=== PATIENT | male | born 1980 | race Caucasian/White ===

== ENCOUNTER 2017-05-18 10:42 | Emergency (ER) | payer SELFPAY ==
[2017-05-18] MEDS ORDERED: NORMAL SALINE 1000 ML 1,000 ML IV PRN (11:15)
--- NOTE | 2017-05-18 11:21 | ER Document Report ---
ED Medical Screen (RME) - General Chief Complaint: Abdominal Pain Stated Complaint: STOMACH PAIN Time Seen by Provider: 05/18/17 11:15 Notes: Patient has 1 day of right lower quadrant abdominal pain. He has had diarrhea and nausea. He has had decreased appetite. He denies any previous abdominal surgeries. No problems with urination. No testicular pain. Patient denies any fevers. The pain is been constant. TRAVEL OUTSIDE OF THE [place] IN LAST 30 DAYS: No - Related Data Allergies/Adverse Reactions: ketorolac tromethamine [From Toradol] Allergy (Intermediate, Verified 05/18/17 10:59) Hives, Itchy Past Medical History - Social History Chew tobacco use (# tins/day): No Frequency of alcohol use: Rare Drug Abuse: None - Past Medical History Cardiac Medical History: Reports: Hx Heart Murmur Pulmonary Medical History: Reports: Hx Pneumonia Renal/ Medical History: Reports: Hx Kidney Stones Psychiatric Medical History: Reports: Hx Anxiety, Hx Depression Past Surgical History: Reports: Hx Oral Surgery - dental surgery - Immunizations Hx Diphtheria, Pertussis, Tetanus Vaccination: Yes Physical Exam - Vital signs Vitals: Temp Pulse Resp BP Pulse Ox 97.9 F 80 16 126/82 H 99 05/18/17 10:55 05/18/17 10:55 05/18/17 10:55 05/18/17 10:55 05/18/17 10:55 Course - Vital Signs Vital signs: Temp Pulse Resp BP Pulse Ox 97.9 F 80 16 126/82 H 99 05/18/17 10:55 05/18/17 10:55 05/18/17 10:55 05/18/17 10:55 05/18/17 10:55
[2017-05-18 11:39] LABS: ABSOLUTE BASOPHILS # (AUTO) 0.1 10^3/uL (0.0-0.2); ABSOLUTE EOSINOPHILS # (AUTO) 0.2 10^3/uL (0.0-0.6); ABSOLUTE LYMPHOCYTES (AUTO) 2.1 10^3/uL (0.5-4.7); ABSOLUTE MONOCYTES (AUTO) 0.6 10^3/uL (0.1-1.4); BASOPHILS % (AUTO) 0.6 % (0-2); EOSINOPHILS % (AUTO) 1.4 % (0-6); HEMATOCRIT 49.8 % (37.9-51.0); HEMOGLOBIN 15.9 g/dL (13.5-17.0); HGB HCT DIFFERENCE -2.1; LYMPHOCYTES % (AUTO) 19.4 % (13-45); MEAN CORPUSCULAR HEMOGLOBIN 25.5 pg (27.0-33.4); MEAN CORPUSCULAR VOLUME 80 fl (80-97); MONOCYTES % (AUTO) 5.9 % (3-13); RED BLOOD COUNT 6.25 10^6/uL (4.35-5.55); RED CELL DISTRIBUTION WIDTH 14.6 % (11.5-14.0); SEGMENTED NEUTROPHILS % (AUTO) 72.7 % (42-78)
[2017-05-18 11:44] LABS: APPEARANCE,URINE SLIGHTLY-CLOUDY; BILIRUBIN,URINE NEGATIVE (NEGATIVE); GLUCOSE, URINE NEGATIVE (NEGATIVE); KETONES,URINE NEGATIVE (NEGATIVE); LEUKOCYTE ESTERASE,URINE SMALL (NEGATIVE); NITRITE,URINE NEGATIVE (NEGATIVE); PROTEIN,URINE NEGATIVE (NEGATIVE); URINE SPECIFIC GRAVITY 1.009; UROBILINOGEN,URINE NEGATIVE mg/dL (<2.0)
[2017-05-18 12:03] LABS: ALANINE AMINOTRANSFERASE 27 U/L (21-72); ALKALINE PHOSPHATASE 41 U/L (38-126); ANION GAP 8 (5-19); ASPARTATE AMINO TRANSFERASE 19 U/L (17-59); BILIRUBIN,DIRECT 0.4 mg/dL (0.0-0.4); BILIRUBIN,TOTAL 0.5 mg/dL (0.2-1.3); BLOOD UREA NITROGEN 13 mg/dL (7-20); CALCIUM 9.5 mg/dL (8.4-10.2); CARBON DIOXIDE 26 mmol/L (22-30); CHLORIDE 105 mmol/L (98-107); CREATININE RESULT 0.93 mg/dL (0.52-1.25); GLUCOSE 110 mg/dL (75-110); POTASSIUM 4.5 mmol/L (3.6-5.0); SODIUM 138.7 mmol/L (137-145); TOTAL PROTEIN 6.3 g/dL (6.3-8.2)
--- NOTE | 2017-05-18 12:17 | RADIOLOGY REPORT (SQ) ---
EXAM DESCRIPTION: CT ABD/PELVIS WITH IV ONLY COMPLETED DATE/TIME: 05/18/2017 11:48 am REASON FOR STUDY: rlq pain COMPARISON: CT abdomen and pelvis 01/01/2007, 10/14/2007, 08/12/2011, 06/08/2012, 02/18/2013, 05/20/2014 TECHNIQUE: CT scan of the abdomen and pelvis performed using helical scanning technique with dynamic intravenous contrast injection. No oral contrast. Images reviewed with lung, soft tissue, and bone windows. Reconstructed coronal and sagittal MPR imag es reviewed. Delayed images for evaluation of the urinary system also acquired. All images stored on PACS. All CT scanners at this facility use dose modulation, iterative reconstruction, and/or weight based d osing when appropriate to reduce radiation dose to as low as reasonably achievable (ALARA). [facility]: Dose Right [facility]: CareDose [facility]: Dose Right [facility]: Teradose 4D [facility]: Bundlr CONTRAST TYPE AND DOSE: contrast/concentration: Isovue 370.00 mg/ml; Total Contrast Delivered: 65.0 ml; Total Saline Delivered: 65.0 ml RENAL FUNCTION: None required. The patient is less than 50 years old. RADIATION DOSE: Up-to-date CT equipment and radiation dose reduction techniques were employed. CTDIv ol: 4.8 - 5.1 mGy. DLP: 491 mGy-cm.. LIMITATIONS: None. FINDINGS: LOWER CHEST: No significant findings. No nodules or infiltrates. LIVER: Normal size. No masses. No dilated ducts. SPLEEN: Normal size. No focal lesions. PANCREAS: No masses. No significant calcifications. No adjacent inflammation or peripancreatic fluid collections. Pancreatic duct not dilated. GALLBLADDER: No identified stones by CT criteria. No inflammatory changes to suggest cholecystitis. ADRENAL GLANDS: No significant masses or asymmetry. RIGHT KIDNEY AND URETER: No solid masses. 0.8 cm cyst right mid-pole kidney. No significant calcifi cations. No hydronephrosis or hydroureter. LEFT KIDNEY AND URETER: No solid masses. 1.1 cm cyst left mid pole kidney. No significant calcifica tions. No hydronephrosis or hydroureter. AORTA AND VESSELS: No aneurysm. No dissection. Renal arteries, SMA, celiac without stenosis. RETROPERITONEUM: No retroperitoneal adenopathy, hemorrhage or masses. BOWEL AND PERITONEAL CAVITY: No masses or inflammatory changes. No free fluid or peritoneal masses. APPENDIX: Normal. PELVIS: No mass. No free fluid. Normal bladder. ABDOMINAL WALL: No masses. No hernias. BONES: No significant or acute findings. OTHER: No other significant finding. IMPRESSION: NO SIGNIFICANT OR ACUTE FINDING IN THE ABDOMEN OR PELVIS ON CT SCAN WITH IV CONTRAST. TECHNICAL DOCUMENTATION: JOB ID: [id number] Quality ID # [id number]: Final reports with documentation of one or more dose reduction techniques (e.g., Au tomated exposure control, adjustment of the mA and/or kV according to patient size, use of iterative reconstruction technique) 2010 [employer]- All Rights Reserved
[2017-05-18] MEDS ORDERED: HYDROCODONE/ACETAMINOPHEN 5-325 MG TABLET PO ONE (13:49)
[2017-05-18] MEDS ORDERED: ONDANSETRON HCL INJ/PF 4 MG/2 ML SDV IV ONE (13:49)
--- NOTE | 2017-05-18 15:12 | ER Document Report ---
ED GI/ - General Chief Complaint: Abdominal Pain Stated Complaint: STOMACH PAIN Time Seen by Provider: 05/18/17 11:15 Mode of Arrival: Ambulatory Information source: Patient Notes: Patient is a 36-year-old male who presents to the ER today for nausea, vomiting , abdominal cramping all over since this morning. Patient admits to 4-5 episodes of vomiting. He denies any diarrhea stating that he had a normal bowel movement this morning. He denies any sick contacts, fevers, chills. TRAVEL OUTSIDE OF THE [place] IN LAST 30 DAYS: No - Related Data Allergies/Adverse Reactions: ketorolac tromethamine [From Toradol] Allergy (Intermediate, Verified 05/18/17 10:59) Hives, Itchy Past Medical History - General Information source: Patient - Social History Smoking Status: Current Every Day Smoker Chew tobacco use (# tins/day): No Frequency of alcohol use: Rare Drug Abuse: None Family History: Reviewed & Not Pertinent, Hypertension - Past Medical History Cardiac Medical History: Reports: Hx Heart Murmur Pulmonary Medical History: Reports: Hx Pneumonia Renal/ Medical History: Reports: Hx Kidney Stones Psychiatric Medical History: Reports: Hx Anxiety, Hx Depression Past Surgical History: Reports: Hx Oral Surgery - dental surgery - Immunizations Hx Diphtheria, Pertussis, Tetanus Vaccination: Yes Review of Systems - Review of Systems Constitutional: No symptoms reported EENT: No symptoms reported Cardiovascular: No symptoms reported Respiratory: No symptoms reported Gastrointestinal: See HPI Genitourinary: No symptoms reported Male Genitourinary: No symptoms reported Musculoskeletal: No symptoms reported Skin: No symptoms reported Hematologic/Lymphatic: No symptoms reported Neurological/Psychological: No symptoms reported Physical Exam - Vital signs Vitals: Temp Pulse Resp BP Pulse Ox 97.9 F 80 16 126/82 H 99 05/18/17 10:55 05/18/17 10:55 05/18/17 10:55 05/18/17 10:55 05/18/17 10:55 - Notes Notes: PHYSICAL EXAMINATION: GENERAL: Mildly ill-appearing, but earing and in no acute distress. HEAD: Atraumatic, normocephalic. EYES: Pupils equal round and reactive to light, extraocular movements intact, sclera anicteric, conjunctiva are normal. NECK: Normal range of motion, supple without lymphadenopathy LUNGS: CTAB and equal. No wheezes rales or rhonchi. HEART: Regular rate and rhythm without murmurs ABDOMEN: Soft, mild diffuse tenderness. No guarding, no rebound BACK: no vertebral tenderness, normal ROM GI/: no CVA tenderness EXTREMITIES: Normal range of motion, no pitting edema. No cyanosis. NEUROLOGICAL: Cranial nerves grossly intact. Normal sensory/motor exams. PSYCH: Normal mood, normal affect. SKIN: Warm, Dry, normal turgor, no rashes or lesions noted Course - Re-evaluation Re-evalutation: 05/18/17 16:05 Patient given fluids, feels better after IV nausea medication. Lab work unremarkable today. Patient was sent home with nausea medication. - Vital Signs Vital signs: Temp Pulse Resp BP Pulse Ox 98.3 F 59 L 16 143/72 H 98 05/18/17 15:27 05/18/17 15:27 05/18/17 15:27 05/18/17 15:27 05/18/17 15:27 - Laboratory Result Diagrams: 05/18/17 11:23 05/18/17 11:23 Laboratory results interpreted by me: 05/18/17 05/18/17 11:23 11:23 WBC 11.0 H RBC 6.25 H MCH 25.5 L RDW 14.6 H Urine Blood MODERATE H Ur Leukocyte Esterase SMALL H Discharge - Discharge Clinical Impression: Abdominal pain Qualifiers: Abdominal location: generalized Qualified Code(s): R10.84 - Generalized abdominal pain Nausea & vomiting Qualifiers: Vomiting type: unspecified Vomiting Intractability: non-intractable Qualified Code(s): R11.2 - Nausea with vomiting, unspecified Condition: Stable Disposition: HOME, SELF-CARE Instructions: Intravenous (IV) Fluids ([facility]), Viral Syndrome ([facility]), Vomiting ( [facility]) Additional Instructions: Return immediately for any new or worsening symptoms. Follow up with primary care provider, call tomorrow to make followup appointment. Prescriptions: Ondansetron [Zofran Odt 4 mg Tablet] 1 - 2 tab PO Q4H PRN #30 tab.rapdis PRN Reason: For Nausea/Vomiting Forms: Return to Work
[2017-05-18 15:27] VITALS: BP 143/72
== END 2017-05-18 15:28 | disposition home or self-care (01) ==
LOC: ER 10:42
DX: R10.84 Generalized abdominal pain (principal); R11.2 Nausea with vomiting, unspecified; F17.200 Nicotine dependence, unspecified, uncomplicated; Z88.8 Allergy status to other drugs, medicaments and biological substances; Z87.442 Personal history of urinary calculi
CPT/HCPCS: 99284; 96361; 96374; 36415; 85025; 80053; 81001; 74177; J2405; J7030

== ENCOUNTER 2017-09-04 13:59 | Emergency (ER) | payer SELFPAY ==
[2017-09-04] MEDS ORDERED: NORMAL SALINE 1000 ML 1,000 ML IV ONE (14:46)
--- NOTE | 2017-09-04 14:47 | ER Document Report ---
ED Medical Screen (RME) - General Chief Complaint: Nausea/Vomiting/Diarrhea Stated Complaint: VOMITING Time Seen by Provider: 09/04/17 14:44 TRAVEL OUTSIDE OF THE [place] IN LAST 30 DAYS: No - HPI Patient complains to provider of: N/V/D Onset: This morning - pt with c/o multiple episodes of vomiting and diarrhea since early this am - Related Data Allergies/Adverse Reactions: ketorolac tromethamine [From Toradol] Allergy (Intermediate, Verified 09/04/17 14:00) Hives, Itchy Past Medical History - Social History Chew tobacco use (# tins/day): No Frequency of alcohol use: Rare Drug Abuse: None - Past Medical History Cardiac Medical History: Reports: Hx Heart Murmur Pulmonary Medical History: Reports: Hx Pneumonia Renal/ Medical History: Reports: Hx Kidney Stones. Denies: Hx Peritoneal Dialysis Psychiatric Medical History: Reports: Hx Anxiety, Hx Depression Past Surgical History: Reports: Hx Oral Surgery - dental surgery - Immunizations Hx Diphtheria, Pertussis, Tetanus Vaccination: Yes Physical Exam - Vital signs Vitals: Temp Pulse Resp BP Pulse Ox 98.7 F 80 16 137/80 H 100 09/04/17 14:08 09/04/17 14:08 09/04/17 14:08 09/04/17 14:08 09/04/17 14:08 Course - Vital Signs Vital signs: Temp Pulse Resp BP Pulse Ox 98.7 F 80 16 137/80 H 100 09/04/17 14:08 09/04/17 14:08 09/04/17 14:08 09/04/17 14:08 09/04/17 14:08
[2017-09-04 15:14] LABS: ABSOLUTE BASOPHILS # (AUTO) 0.1 10^3/uL (0.0-0.2); ABSOLUTE EOSINOPHILS # (AUTO) 0.3 10^3/uL (0.0-0.6); ABSOLUTE LYMPHOCYTES (AUTO) 2.7 10^3/uL (0.5-4.7); ABSOLUTE MONOCYTES (AUTO) 0.8 10^3/uL (0.1-1.4); ABSOLUTE NEUT (AUTO) 6.5 10^3/uL (1.7-8.2); BASOPHILS % (AUTO) 1.4 % (0-2); EOSINOPHILS % (AUTO) 2.5 % (0-6); HEMATOCRIT 48.9 % (37.9-51.0); HEMOGLOBIN 16.2 g/dL (13.5-17.0); LYMPHOCYTES % (AUTO) 25.8 % (13-45); MEAN CORPUSCULAR HEMOGLOBIN 25.3 pg (27.0-33.4); MEAN CORPUSCULAR HGB CONC 33.1 g/dL (32.0-36.0); MEAN CORPUSCULAR VOLUME 77 fl (80-97); MONOCYTES % (AUTO) 7.8 % (3-13); PLATELET COUNT 375 10^3/uL (150-450); RED BLOOD COUNT 6.39 10^6/uL (4.35-5.55); RED CELL DISTRIBUTION WIDTH 15.3 % (11.5-14.0); SEGMENTED NEUTROPHILS % (AUTO) 62.5 % (42-78); TOTAL CELLS COUNTED % (AUTO) 100 %; WHITE BLOOD COUNT 10.3 10^3/uL (4.0-10.5)
[2017-09-04 15:23] LABS: APPEARANCE,URINE CLEAR; BILIRUBIN,URINE NEGATIVE (NEGATIVE); COLOR,URINE YELLOW; GLUCOSE, URINE NEGATIVE (NEGATIVE); KETONES,URINE NEGATIVE (NEGATIVE); LEUKOCYTE ESTERASE,URINE NEGATIVE (NEGATIVE); NITRITE,URINE NEGATIVE (NEGATIVE); PROTEIN,URINE NEGATIVE (NEGATIVE); URINE SPECIFIC GRAVITY 1.015; UROBILINOGEN,URINE NEGATIVE mg/dL (<2.0)
[2017-09-04 15:33] LABS: ALANINE AMINOTRANSFERASE 30 U/L (21-72); ALBUMIN 4.3 g/dL (3.5-5.0); ALKALINE PHOSPHATASE 46 U/L (38-126); ANION GAP 11 (5-19); ASPARTATE AMINO TRANSFERASE 19 U/L (17-59); BILIRUBIN,DIRECT 0.4 mg/dL (0.0-0.4); BILIRUBIN,TOTAL 0.5 mg/dL (0.2-1.3); BLOOD UREA NITROGEN 12 mg/dL (7-20); CALCIUM 9.8 mg/dL (8.4-10.2); CARBON DIOXIDE 29 mmol/L (22-30); CHLORIDE 106 mmol/L (98-107); GLUCOSE 96 mg/dL (75-110); LIPASE 224.9 U/L (23-300); POTASSIUM 4.4 mmol/L (3.6-5.0); TOTAL PROTEIN 6.8 g/dL (6.3-8.2)
--- NOTE | 2017-09-04 15:46 | RADIOLOGY REPORT (SQ) ---
EXAM DESCRIPTION: ACUTE ABDOMEN SERIES COMPLETED DATE/TIME: 09/04/2017 3:33 pm REASON FOR STUDY: abd pain COMPARISON: None. NUMBER OF VIEWS: Three views. TECHNIQUE: Frontal chest, supine abdomen and upright/decubitus abdomen radiographic images acquired. LIMITATIONS: None. FINDINGS: CHEST: Lungs clear of infiltrates. FREE AIR: None. No abnormal gas collections. BOWEL GAS PATTERN: Nonobstructive pattern. No dilated loops or air fluid levels. CALCIFICATIONS: No suspicious calcifications. HARDWARE: None in the abdomen. SOFT TISSUES: No gross mass or suggestion of organomegaly. BONES: No acute fracture. No worrisome bone lesions. OTHER: No other significant finding. IMPRESSION: NO RADIOGRAPHIC EVIDENCE FOR ACUTE ABDOMINAL DISEASE. TECHNICAL DOCUMENTATION: JOB ID: [id number] [email or web address]- All Rights Reserved
[2017-09-04 17:30] VITALS: BP 132/94
== END 2017-09-04 17:15 | disposition home or self-care (01) ==
LOC: ER 13:59
DX: K52.9 Noninfective gastroenteritis and colitis, unspecified (principal); R11.2 Nausea with vomiting, unspecified
CPT/HCPCS: 99284; 96360; 36415; 83690; 85025; 80053; 81001; 74022; J7030

== ENCOUNTER 2018-01-12 09:45 | Emergency (ER) | payer SELFPAY ==
--- NOTE | 2018-01-12 10:13 | ER Document Report ---
ED Medical Screen (RME) - General Chief Complaint: Nausea/Vomiting Stated Complaint: VOMITING Time Seen by Provider: 01/12/18 10:01 Mode of Arrival: Ambulatory Information source: Patient Notes: Patient is a 37-year-old male who presents to the emergency department today with complaints of vomiting with associated abdominal cramping which began yesterday at noon. Patient states he has had these symptoms in the past and his pain today is similar to his previous gastritis flares. Patient denies any sick contacts, bad food, diarrhea, or black/red coloring in his vomit. TRAVEL OUTSIDE OF THE [place] IN LAST 30 DAYS: No - Related Data Allergies/Adverse Reactions: ketorolac tromethamine [From Toradol] Allergy (Intermediate, Verified 09/04/17 14:00) Hives, Itchy Past Medical History - General Information source: Patient - Social History Chew tobacco use (# tins/day): No Frequency of alcohol use: Rare Drug Abuse: None Lives with: Family Family history: Reviewed & Not Pertinent - Past Medical History Cardiac Medical History: Reports: Hx Heart Murmur Pulmonary Medical History: Reports: Hx Pneumonia Renal/ Medical History: Reports: Hx Kidney Stones Psychiatric Medical History: Reports: Hx Anxiety, Hx Depression Past Surgical History: Reports: Hx Oral Surgery - dental surgery - Immunizations Hx Diphtheria, Pertussis, Tetanus Vaccination: Yes Review of Systems - Review of Systems Constitutional: No symptoms reported EENT: No symptoms reported Cardiovascular: No symptoms reported Respiratory: No symptoms reported Gastrointestinal: See HPI, Abdominal pain, Vomiting. denies: Diarrhea Genitourinary: No symptoms reported Male Genitourinary: No symptoms reported Musculoskeletal: No symptoms reported Skin: No symptoms reported Hematologic/Lymphatic: No symptoms reported Neurological/Psychological: No symptoms reported -: Yes All other systems reviewed and negative Physical Exam - Vital signs Vitals: Temp Pulse Resp BP Pulse Ox 98.3 F 78 15 113/76 98 01/12/18 09:51 01/12/18 09:51 01/12/18 09:51 01/12/18 09:51 01/12/18 09:51 - Notes Notes: Physical Exam: General: Alert, appears well. HEENT: Normocephalic. Atraumatic. PERRLA. Extraocular movements intact. Oropharynx clear. Dry mucous membranes. Neck: Supple. Respiratory: No respiratory distress. Abdominal: Normal Inspection. No distension. Extremities: Moves all four extremities. Neurological: Normal cognition. AAOx4. Normal speech. Psychological: Normal affect. Normal Mood. Skin: Warm. Dry. Normal color. Course - Vital Signs Vital signs: Temp Pulse Resp BP Pulse Ox 98.3 F 78 15 113/76 98 01/12/18 09:51 01/12/18 09:51 01/12/18 09:51 01/12/18 09:51 01/12/18 09:51 - Laboratory Result Diagrams: 01/12/18 10:45 01/12/18 10:45 Scribe Documentation - Scribe Written by Scribe:: Flora Vasquez, 01/12/2018 1113 acting as scribe for :: Aurelio
[2018-01-12] MEDS ORDERED: NORMAL SALINE 1000 ML 1,000 ML IV ONE (10:15)
[2018-01-12] MEDS ORDERED: ONDANSETRON HCL INJ/PF 4 MG/2 ML SDV IV ONE (10:16)
--- NOTE | 2018-01-12 11:06 | ER Document Report ---
ED GI/ <ABELINOMARLEY - Last Filed: 01/12/18 11:13> - General Mode of Arrival: Ambulatory Information source: Patient TRAVEL OUTSIDE OF THE [place] IN LAST 30 DAYS: No - HPI Patient complains to provider of: Abdominal pain, Vomiting Onset: Yesterday Timing/Duration: Gradual Quality of pain: Cramping Pain Level: 1 Location: Other - Generalized abdomen Associated symptoms: Nausea, Vomiting. denies: Diarrhea, Dysuria, Loss of appetite Exacerbated by: Denies Relieved by: Denies Similar symptoms previously: No Recently seen / treated by doctor: No <VICKI SAMANIEGO - Last Filed: 01/12/18 18:51> - General Chief Complaint: Nausea/Vomiting Stated Complaint: VOMITING Time Seen by Provider: 01/12/18 10:01 Notes: Patient presents complaining of nausea and vomiting that started yesterday. Patient states that the vomiting has improved today. Patient denies any diarrhea. Patient reports that he did develop some abdominal cramping that started after the vomiting. Patient without any fever or urinary symptoms. Patient reports normal appetite. 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 Denies: Hx Peritoneal Dialysis Psychiatric Medical History: Reports: Hx Anxiety, Hx Depression Past Surgical History: Reports: Hx Oral Surgery - dental surgery - Immunizations Hx Diphtheria, Pertussis, Tetanus Vaccination: Yes <VICKI SAMANIEGO - Last Filed: 01/12/18 18:51> Review of Systems - Review of Systems Constitutional: No symptoms reported. denies: Fever EENT: No symptoms reported Cardiovascular: No symptoms reported Respiratory: No symptoms reported. denies: Cough Gastrointestinal: Abdominal pain, Nausea, Vomiting. denies: Diarrhea Genitourinary: No symptoms reported. denies: Dysuria, Flank pain Male Genitourinary: No symptoms reported Musculoskeletal: No symptoms reported Skin: No symptoms reported Hematologic/Lymphatic: No symptoms reported Neurological/Psychological: No symptoms reported. denies: Headaches <VICKI SAMANIEGO - Last Filed: 01/12/18 18:51> Physical Exam - General General appearance: Appears well, Alert In distress: None - HEENT Head: Normocephalic, Atraumatic Eyes: Normal Conjunctiva: Normal Ears: Normal External canal: Normal Nasal: Normal Mouth/Lips: Normal Mucous membranes: Normal. No: Dry Pharynx: Normal. No: Erythema Neck: Normal, Supple. No: Lymphadenopathy - Respiratory Respiratory status: No respiratory distress Chest status: Nontender Breath sounds: Normal. No: Rales, Rhonchi, Stridor, Wheezing Chest palpation: Normal - Cardiovascular Rhythm: Regular Heart sounds: S1 appreciated, S2 appreciated Murmur: No - Abdominal Inspection: Normal Distension: No distension Bowel sounds: Normal Tenderness: Tender - Generalized abdominal tenderness Organomegaly: No organomegaly - Back Back: Normal, Nontender. No: CVA tenderness - Extremities General upper extremity: Normal inspection, Nontender, Normal ROM General lower extremity: Normal inspection, Nontender, Normal ROM - Neurological Neuro grossly intact: Yes Cognition: Normal [place] Coma Scale Eye Opening: Spontaneous Daniel Coma Scale Verbal: Oriented [place] Coma Scale Motor: Obeys Commands Daniel Coma Scale Total: 15 - Psychological Associated symptoms: Normal affect, Normal mood - Skin Skin Temperature: Warm Skin Moisture: Dry Skin Color: Normal <ADENVICKI Ortega - Last Filed: 01/12/18 18:51> - Vital signs Vitals: Temp Pulse Resp BP Pulse Ox 98.3 F 78 15 113/76 98 01/12/18 09:51 01/12/18 09:51 01/12/18 09:51 01/12/18 09:51 01/12/18 09:51 Course - Laboratory Result Diagrams: 01/12/18 10:45 01/12/18 10:45 <MARLEY ROCA - Last Filed: 01/12/18 11:13> - Laboratory Result Diagrams: 01/12/18 10:45 01/12/18 10:45 <ADENPEDROTENAJACEK - Last Filed: 01/12/18 18:51> - Re-evaluation Re-evalutation: 01/12/18 12:47 Patient's abdomen soft, nontender. Patient denies any nausea or vomiting at this time. Patient presents with abdominal pain without signs of peritonitis or other life-threatening or serious etiology. Patient appears stable for discharge and has been instructed to return immediately if the symptoms worsen in any way, or in 8-12 hours if not improved for reevaluation. The patient has been instructed to return if the symptoms worsen or change in any way. (VICKI SAMANIEGO) - Vital Signs Vital signs: Temp Pulse Resp BP Pulse Ox 98.1 F 68 16 137/89 H 100 01/12/18 12:55 01/12/18 12:55 01/12/18 12:55 01/12/18 12:55 01/12/18 12:55 - Laboratory Laboratory results interpreted by me: 01/12/18 01/12/18 10:45 10:45 RBC 6.57 H MCV 77 L MCH 25.2 L RDW 14.9 H Sodium 146.5 H 01/12/18 01/12/18 10:45 10:45 RBC 6.57 H MCV 77 L MCH 25.2 L RDW 14.9 H Sodium 146.5 H 01/12/18 12:47 Labs- Entire Visit 01/12/18 01/12/18 01/12/18 10:35 10:45 10:45 WBC 8.3 RBC 6.57 H Hgb 16.6 Hct 50.4 MCV 77 L MCH 25.2 L MCHC 32.9 RDW 14.9 H Plt Count 333 Seg Neutrophils % 63.9 Lymphocytes % 28.0 Monocytes % 5.7 Eosinophils % 1.2 Basophils % 1.2 Absolute Neutrophils 5.3 Absolute Lymphocytes 2.3 Absolute Monocytes 0.5 Absolute Eosinophils 0.1 Absolute Basophils 0.1 Sodium 146.5 H Potassium 4.1 Chloride 105 Carbon Dioxide 30 Anion Gap 12 BUN 13 Creatinine 0.82 Est GFR ( Amer) > 60 Est GFR (Non-Af Amer) > 60 Glucose 105 Calcium 9.8 Magnesium 2.1 Total Bilirubin 0.4 Direct Bilirubin 0.3 Neonat Total Bilirubin Not Reportable Neonat Direct Bilirubin Not Reportable Neonat Indirect Bili Not Reportable AST 21 ALT 24 Alkaline Phosphatase 57 Total Protein 6.8 Albumin 4.3 Lipase 69.8 Urine Color YELLOW Urine Appearance CLEAR Urine pH 7.0 Ur Specific Bowler 1.006 Urine Protein NEGATIVE Urine Glucose (UA) NEGATIVE Urine Ketones NEGATIVE Urine Blood NEGATIVE Urine Nitrite NEGATIVE Urine Bilirubin NEGATIVE Urine Urobilinogen NEGATIVE Ur Leukocyte Esterase NEGATIVE Urine WBC (Auto) 0 Urine RBC (Auto) 0 Urine Mucus (Auto) RARE Urine Ascorbic Acid NEGATIVE (VICKI SAMANIEGO) Discharge <MARLEY ROCA - Last Filed: 01/12/18 11:13> <VICKI SAMANIEGO - Last Filed: 01/12/18 18:51> - Discharge Clinical Impression: Resolved abdominal pain Nausea and vomiting Qualifiers: Vomiting type: unspecified Vomiting Intractability: non-intractable Qualified Code(s): R11.2 - Nausea with vomiting, unspecified Condition: Stable Disposition: HOME, SELF-CARE Instructions: Abdominal Pain ([facility]), Antinausea Medication ([facility]), Intravenous ( IV) Fluids ([facility]), Vomiting ([facility]) Additional Instructions: Return immediately for any new or worsening symptoms Followup with your primary care provider, call tomorrow to make a followup appointment Prescriptions: Promethazine HCl [Phenergan 25 mg Tablet] 25 mg PO Q6H PRN #10 tablet PRN Reason: Forms: Smoking Cessation Education, Return to Work Referrals: [facility] [Provider Group] - Follow up as needed [facility] [Provider Group] - Follow up as needed
[2018-01-12 11:13] LABS: ABSOLUTE BASOPHILS # (AUTO) 0.1 10^3/uL (0.0-0.2); ABSOLUTE EOSINOPHILS # (AUTO) 0.1 10^3/uL (0.0-0.6); ABSOLUTE LYMPHOCYTES (AUTO) 2.3 10^3/uL (0.5-4.7); ABSOLUTE MONOCYTES (AUTO) 0.5 10^3/uL (0.1-1.4); ABSOLUTE NEUT (AUTO) 5.3 10^3/uL (1.7-8.2); BASOPHILS % (AUTO) 1.2 % (0-2); EOSINOPHILS % (AUTO) 1.2 % (0-6); HEMATOCRIT 50.4 % (37.9-51.0); HEMOGLOBIN 16.6 g/dL (13.5-17.0); MEAN CORPUSCULAR HEMOGLOBIN 25.2 pg (27.0-33.4); MEAN CORPUSCULAR HGB CONC 32.9 g/dL (32.0-36.0); MEAN CORPUSCULAR VOLUME 77 fl (80-97); MONOCYTES % (AUTO) 5.7 % (3-13); PLATELET COUNT 333 10^3/uL (150-450); RED BLOOD COUNT 6.57 10^6/uL (4.35-5.55); RED CELL DISTRIBUTION WIDTH 14.9 % (11.5-14.0); SEGMENTED NEUTROPHILS % (AUTO) 63.9 % (42-78); TOTAL CELLS COUNTED % (AUTO) 100 %; WHITE BLOOD COUNT 8.3 10^3/uL (4.0-10.5)
[2018-01-12 11:21] LABS: APPEARANCE,URINE CLEAR; BILIRUBIN,URINE NEGATIVE (NEGATIVE); COLOR,URINE YELLOW; GLUCOSE, URINE NEGATIVE (NEGATIVE); KETONES,URINE NEGATIVE (NEGATIVE); LEUKOCYTE ESTERASE,URINE NEGATIVE (NEGATIVE); NITRITE,URINE NEGATIVE (NEGATIVE); PROTEIN,URINE NEGATIVE (NEGATIVE); URINE SPECIFIC GRAVITY 1.006; UROBILINOGEN,URINE NEGATIVE mg/dL (<2.0)
[2018-01-12 11:31] LABS: ALANINE AMINOTRANSFERASE 24 U/L (21-72); ALBUMIN 4.3 g/dL (3.5-5.0); ALKALINE PHOSPHATASE 57 U/L (38-126); ANION GAP 12 (5-19); ASPARTATE AMINO TRANSFERASE 21 U/L (17-59); BILIRUBIN,DIRECT 0.3 mg/dL (0.0-0.4); BILIRUBIN,TOTAL 0.4 mg/dL (0.2-1.3); BLOOD UREA NITROGEN 13 mg/dL (7-20); CALCIUM 9.8 mg/dL (8.4-10.2); CARBON DIOXIDE 30 mmol/L (22-30); CHLORIDE 105 mmol/L (98-107); GLUCOSE 105 mg/dL (75-110); LIPASE 69.8 U/L (23-300); POTASSIUM 4.1 mmol/L (3.6-5.0); SODIUM 146.5 mmol/L (137-145); TOTAL PROTEIN 6.8 g/dL (6.3-8.2)
[2018-01-12] MEDS ORDERED: MAG HYDROX/AL HYDROX/SIMETH SUSP 30 ML UDCUP PO ONE (11:35)
[2018-01-12] MEDS ORDERED: LIDOCAINE 2% VISCOUS SOLN 20 ML UDCUP PO ONE (11:35)
[2018-01-12 12:58] VITALS: BP 137/89
== END 2018-01-12 12:58 | disposition home or self-care (01) ==
LOC: ER 09:45
DX: R10.9 Unspecified abdominal pain (principal); R11.2 Nausea with vomiting, unspecified; F17.200 Nicotine dependence, unspecified, uncomplicated; Z87.442 Personal history of urinary calculi
CPT/HCPCS: 99283; 96361; 96374; 36415; 83690; 83735; 85025; 80053; 81001; J3490; J2405; J7030

== ENCOUNTER 2018-07-07 09:28 | Emergency (ER) | payer SELFPAY ==
[2018-07-07 11:18] LABS: APPEARANCE,URINE SLIGHTLY-CLOUDY; BILIRUBIN,URINE NEGATIVE (NEGATIVE); COLOR,URINE YELLOW; GLUCOSE, URINE NEGATIVE (NEGATIVE); KETONES,URINE NEGATIVE (NEGATIVE); LEUKOCYTE ESTERASE,URINE NEGATIVE (NEGATIVE); NITRITE,URINE NEGATIVE (NEGATIVE); PROTEIN,URINE 30 mg/dL (NEGATIVE); URINE SPECIFIC GRAVITY 1.025
[2018-07-07 11:18] LABS: ABSOLUTE BASOPHILS # (AUTO) 0.1 10^3/uL (0.0-0.2); ABSOLUTE EOSINOPHILS # (AUTO) 0.3 10^3/uL (0.0-0.6); ABSOLUTE LYMPHOCYTES (AUTO) 2.9 10^3/uL (0.5-4.7); ABSOLUTE MONOCYTES (AUTO) 0.8 10^3/uL (0.1-1.4); ABSOLUTE NEUT (AUTO) 4.3 10^3/uL (1.7-8.2); BASOPHILS % (AUTO) 1.1 % (0-2); EOSINOPHILS % (AUTO) 3.2 % (0-6); HEMATOCRIT 48.8 % (37.9-51.0); HEMOGLOBIN 16.4 g/dL (13.5-17.0); LYMPHOCYTES % (AUTO) 34.8 % (13-45); MEAN CORPUSCULAR HGB CONC 33.5 g/dL (32.0-36.0); MEAN CORPUSCULAR VOLUME 75 fl (80-97); MONOCYTES % (AUTO) 9.5 % (3-13); PLATELET COUNT 287 10^3/uL (150-450); RED BLOOD COUNT 6.53 10^6/uL (4.35-5.55); RED CELL DISTRIBUTION WIDTH 15.6 % (11.5-14.0); SEGMENTED NEUTROPHILS % (AUTO) 51.4 % (42-78); TOTAL CELLS COUNTED % (AUTO) 100 %; WHITE BLOOD COUNT 8.3 10^3/uL (4.0-10.5)
--- NOTE | 2018-07-07 11:26 | ER Document Report ---
ED GI/ - General Chief Complaint: Abdominal Pain Stated Complaint: VOMITING, DIARRHEA Time Seen by Provider: 07/07/18 11:26 Mode of Arrival: Ambulatory Information source: Patient Notes: 37-year-old male with vomiting and diarrhea since 3:00 yesterday. He vomited 8 or 9 this morning and has had some diarrhea. He has not seen any blood. No history of Crohn's or colitis or diverticulitis. No fever. He is complaining of some generalized abdominal pain. TRAVEL OUTSIDE OF THE [place] 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 Denies: Hx Peritoneal Dialysis Psychiatric Medical History: Reports: Hx Anxiety, Hx Depression Past Surgical History: Reports: Hx Oral Surgery - dental surgery - Immunizations Hx Diphtheria, Pertussis, Tetanus Vaccination: Yes Review of Systems - Review of Systems Constitutional: No symptoms reported EENT: No symptoms reported Cardiovascular: No symptoms reported Respiratory: No symptoms reported Gastrointestinal: See HPI Genitourinary: No symptoms reported Male Genitourinary: No symptoms reported Musculoskeletal: No symptoms reported Skin: No symptoms reported Hematologic/Lymphatic: No symptoms reported Neurological/Psychological: No symptoms reported Physical Exam - Vital signs Vitals: Temp Pulse Resp BP Pulse Ox 97.6 F 76 16 123/87 H 99 07/07/18 09:33 07/07/18 09:33 07/07/18 09:33 07/07/18 09:33 07/07/18 09:33 Interpretation: Normal - General General appearance: Appears well, Alert - HEENT Head: Normocephalic, Atraumatic Eyes: Normal Pupils: PERRL - Respiratory Respiratory status: No respiratory distress Chest status: Nontender Breath sounds: Normal Chest palpation: Normal - Cardiovascular Rhythm: Regular Heart sounds: Normal auscultation Murmur: No - Abdominal Inspection: Normal Distension: No distension Bowel sounds: Normal Tenderness: Nontender Organomegaly: No organomegaly - Back Back: Normal, Nontender. No: CVA tenderness - Extremities General upper extremity: Normal inspection, Nontender, Normal color, Normal ROM , Normal temperature General lower extremity: Normal inspection, Nontender, Normal color, Normal ROM , Normal temperature, Normal weight bearing. No: Wanda's sign - Neurological Neuro grossly intact: Yes Cognition: Normal Orientation: AAOx4 Osgood Coma Scale Eye Opening: Spontaneous Osgood Coma Scale Verbal: Oriented Osgood Coma Scale Motor: Obeys Commands Daniel Coma Scale Total: 15 Speech: Normal Motor strength normal: LUE, RUE, LLE, RLE Sensory: Normal - Psychological Associated symptoms: Normal affect, Normal mood - Skin Skin Temperature: Warm Skin Moisture: Dry Skin Color: Normal Skin irregularity: negative: Rash Course - Re-evaluation Re-evalutation: Labs are normal. Patient feels a lot better after the 2 L of fluid. He is able to keep fluids down orally. He feels like he can go home. - Vital Signs Vital signs: Temp Pulse Resp BP Pulse Ox 97.7 F 68 16 108/75 99 07/07/18 12:43 07/07/18 12:43 07/07/18 12:43 07/07/18 12:43 07/07/18 12:43 - Laboratory Result Diagrams: 07/07/18 09:47 07/07/18 10:30 Laboratory results interpreted by me: 07/07/18 07/07/18 09:47 10:20 RBC 6.53 H MCV 75 L MCH 25.0 L RDW 15.6 H Urine Protein 30 H Urine Urobilinogen 2.0 H Discharge - Discharge Clinical Impression: Vomiting Qualifiers: Vomiting type: unspecified Vomiting Intractability: non-intractable Nausea presence: with nausea Qualified Code(s): R11.2 - Nausea with vomiting, unspecified Diarrhea Qualifiers: Diarrhea type: unspecified type Qualified Code(s): R19.7 - Diarrhea, unspecified Condition: Good Disposition: HOME, SELF-CARE Instructions: Diarrhea, Nonspecific ([facility]), Intravenous (IV) Fluids ([facility]), Vomiting ([facility]) Additional Instructions: Drink plenty of fluids to continue hydrating Return to the emergency room if vomiting or diarrhea recur Prescriptions: Ondansetron HCl [Zofran 4 mg Tablet] 1 - 2 tab PO Q4H PRN #20 tablet PRN Reason: Forms: Return to Work
[2018-07-07] MEDS ORDERED: RINGERS SOLUTION,LACTATED 2,000 ML IV PRN (11:28)
[2018-07-07] MEDS ORDERED: ONDANSETRON 4 MG TAB.RAPDIS PO ONE (11:31)
[2018-07-07 11:42] LABS: ALANINE AMINOTRANSFERASE 23 U/L (21-72); ALBUMIN 4.4 g/dL (3.5-5.0); ALKALINE PHOSPHATASE 47 U/L (38-126); ANION GAP 10 (5-19); ASPARTATE AMINO TRANSFERASE 19 U/L (17-59); BILIRUBIN,DIRECT 0.4 mg/dL (0.0-0.4); BILIRUBIN,TOTAL 0.8 mg/dL (0.2-1.3); BLOOD UREA NITROGEN 18 mg/dL (7-20); CALCIUM 9.7 mg/dL (8.4-10.2); CARBON DIOXIDE 26 mmol/L (22-30); CHLORIDE 105 mmol/L (98-107); GLUCOSE 84 mg/dL (75-110); POTASSIUM 4.1 mmol/L (3.6-5.0)
[2018-07-07 11:43] LABS: LIPASE 168.1 U/L (23-300); TOTAL PROTEIN 7.6 g/dL (6.3-8.2)
[2018-07-07 12:47] VITALS: BP 108/75
== END 2018-07-07 12:47 | disposition home or self-care (01) ==
LOC: ER 09:28
DX: R11.2 Nausea with vomiting, unspecified (principal); R19.7 Diarrhea, unspecified; R10.84 Generalized abdominal pain; F17.200 Nicotine dependence, unspecified, uncomplicated; Z88.8 Allergy status to other drugs, medicaments and biological substances; Z87.442 Personal history of urinary calculi
CPT/HCPCS: 99284; 96360; 36415; 83690; 85025; 80053; 81001; S0119; J7120

== ENCOUNTER 2018-07-14 01:49 | Emergency (ER) | payer SELFPAY ==
[2018-07-14 01:53] VITALS: BP 138/85
[2018-07-14] MEDS ORDERED: CIPROFLOXACIN HCL/DEXAMETH OTIC DROP 7.5 ML AS ONE (02:20)
--- NOTE | 2018-07-14 02:28 | ER Document Report ---
ED ENT - General Chief Complaint: Ear Pain Stated Complaint: EAR PAIN/DRAINAGE Time Seen by Provider: 07/14/18 02:10 Mode of Arrival: Ambulatory Information source: Patient Notes: Patient is a 37-year-old male comes to emergency room complaining of left ear pain. Patient states he has been having pain in the ear for about 3 days now he denies using any type of Q-tip or device in his ear and when he woke up tonight in bed with severe pain on the left side of his head he had blood on his pillow. He states he also wiped some blood away from the canal of the ear. He denies any known trauma. Patient also denies any past medical history. 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 TRAVEL OUTSIDE OF THE [place] IN LAST 30 DAYS: No - HPI Patient complains to provider of: Ear problem Onset: Other - 3 days Onset/Duration: Sudden, Persistent, Worse Quality of pain: Achy, Sharp Severity: Moderate Context: Other - Denies any known traumatic events Location of pain: Ears Associated symptoms: Hearing loss, Hoarse voice Similar symptoms previously: No Recently seen / treated by doctor: No - Related Data Allergies/Adverse Reactions: ketorolac tromethamine [From Toradol] Allergy (Intermediate, Verified 07/07/18 09:29) Hives, Itchy Past Medical History - General Information source: Patient - Social History Smoking Status: Current Every Day Smoker Cigarette use (# per day): Yes - 1 pack a day Chew tobacco use (# tins/day): No Smoking Education Provided: Yes Frequency of alcohol use: None Drug Abuse: None 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 Denies: Hx Peritoneal Dialysis Psychiatric Medical History: Reports: Hx Anxiety, Hx Depression Past Surgical History: Reports: Hx Oral Surgery - dental surgery - Immunizations Hx Diphtheria, Pertussis, Tetanus Vaccination: Yes Review of Systems - Review of Systems Constitutional: No symptoms reported EENT: Ear pain Cardiovascular: No symptoms reported Respiratory: No symptoms reported Gastrointestinal: No symptoms reported Genitourinary: No symptoms reported Male Genitourinary: No symptoms reported Musculoskeletal: No symptoms reported Skin: No symptoms reported Hematologic/Lymphatic: No symptoms reported Neurological/Psychological: No symptoms reported -: Yes All other systems reviewed and negative Physical Exam - Vital signs Vitals: Temp Pulse Resp BP Pulse Ox 98.6 F 89 16 138/85 H 99 07/14/18 01:52 07/14/18 01:52 07/14/18 01:52 07/14/18 01:52 07/14/18 01:52 Interpretation: Hypertensive - Notes Notes: Patient is a well-nourished well-developed 37-year-old male who is in no apparent distress on physical examination however does appear uncomfortable. - General General appearance: Alert In distress: None - HEENT Head: Normocephalic, Atraumatic Eyes: Normal Conjunctiva: Normal Ears: Pinna tenderness, Tragus tenderness External canal: Erythema, Swollen, Other - Examination of the left external canal here shows there to be moderate swelling more towards the internal portion of the canal then external. TM is visualized but only the upper part. Does not appear as if there is a perforation in the TM. Right ear is normal in appearance with no air-fluid levels noted in TM not bulging or retracted. Tympanic membrane: Normal, Injected. No: Bulging Hearing loss: Left Sinus: Normal. No: Abnormal, Frontal, Mastoid, Maxillary, Redness, Swelling, Tenderness Nasal: Normal. No: Purulent discharge, Septal hematoma, Swelling Mouth/Lips: Other - Examination of the oral cavity shows patient to have dental decay throughout his entire mouth with only grayish no rubs barely extruding from the gum lines.. No: Angioedema Pharynx: Normal, Erythema. No: Blood in hypopharynx, Exudate, Peritonsillar abscess, Post nasal drainage, Retropharyngeal abscess, Tonsillar hypertrophy, Uvular edema, Potential airway comprom., Other Neck: Normal, Supple. No: Anterior cervical chain, Posterior cervical chain, Carotid bruit, Kernig's, Lymphadenopathy, Meningismus, Neck mass, Shotty nodes, Subcutaneous emphysema, Thyroid nodule, Thyromegally - Respiratory Respiratory status: No respiratory distress Chest status: Nontender Breath sounds: Normal. No: Rales, Rhonchi, Stridor, Wheezing Chest palpation: Normal - Cardiovascular Rhythm: Regular Heart sounds: Normal auscultation Murmur: No - Neurological Neuro grossly intact: Yes Cognition: Normal Orientation: AAOx4 Daniel Coma Scale Eye Opening: Spontaneous Daniel Coma Scale Verbal: Oriented Daniel Coma Scale Motor: Obeys Commands Daniel Coma Scale Total: 15 Speech: Normal Course - Re-evaluation Re-evalutation: 07/14/18 02:30 Physical exam patient's ears show that the left appears to have an otitis externa with a moderate amount of erythema surrounding the TM from what can be seen. Fairly sure there is no TM rupture. We will use Ciprodex antibiotics for the swelling of the external canal and discomfort. I am giving patient the ear and nose and throat physician that we use from the ER. Even though they are not litigation secretary tonight. - Vital Signs Vital signs: Temp Pulse Resp BP Pulse Ox 98.6 F 89 16 138/85 H 99 07/14/18 01:52 07/14/18 01:52 07/14/18 01:52 07/14/18 01:52 07/14/18 01:52 Discharge - Discharge Clinical Impression: Otitis externa Qualifiers: Otitis externa type: unspecified type Chronicity: acute Laterality: left Qualified Code(s): H60.502 - Unspecified acute noninfective otitis externa, left ear Condition: Stable Disposition: HOME, SELF-CARE Instructions: Use of Ear Drops ([facility]), Otitis Externa ([facility]) Additional Instructions: Home and use the medicated drops that we given you from the emergency room. Apply 3-4 drops in the left ear twice a day for 7 days. If pain continues or hearing loss seems to get be getting worse I have given you the name of the ears nose and throat physician that we recommend out of the emergency room at this time. They are currently not litigation secretary for us but they are been accepting patients. Should you have any concerns or problems other than that return to ER for recheck. Forms: Elevated Blood Pressure, Smoking Cessation Education, Return to Work Referrals: SKY MONTESINOS MD [NO LOCAL MD] - Follow up as needed
== END 2018-07-14 02:50 | disposition home or self-care (01) ==
LOC: ER 01:49
DX: H60.502 Unspecified acute noninfective otitis externa, left ear (principal); K02.9 Dental caries, unspecified; H92.02 Otalgia, left ear; R49.0 Dysphonia; F17.210 Nicotine dependence, cigarettes, uncomplicated; Z88.8 Allergy status to other drugs, medicaments and biological substances
CPT/HCPCS: 99282; J3490

== ENCOUNTER 2019-02-03 08:51 | Emergency (ER) | payer SELFPAY ==
[2019-02-03] MEDS ORDERED: ONDANSETRON 4 MG TAB.RAPDIS PO ONE (09:20)
--- NOTE | 2019-02-03 09:22 | ER Document Report ---
ED Medical Screen (RME) - General Chief Complaint: Nausea/Vomiting Stated Complaint: ABDOMINAL PAIN,VOMITING Time Seen by Provider: 02/03/19 09:18 Mode of Arrival: Ambulatory Information source: Patient Notes: Patient is an otherwise healthy 38-year-old male presenting with nausea, vomiting and generalized abdominal pain that started last night. Patient reports he has vomited approximately 4-6 times. He states his mother had similar symptoms a few days ago. Patient's vital signs are within normal limits. Denies any diarrhea or fever. Exam: Abdomen soft and nontender. I have greeted and performed a rapid initial assessment of this patient. A comprehensive ED assessment and evaluation of the patient, analysis of test results and completion of the medical decision making process will be conducted by additional ED providers. Dictation of this chart was performed using voice recognition software; therefore, there may be some unintended grammatical errors. TRAVEL OUTSIDE OF THE [place] IN LAST 30 DAYS: No - Related Data Allergies/Adverse Reactions: ketorolac tromethamine [From Toradol] Allergy (Intermediate, Verified 02/03/19 08:55) Hives, Itchy Past Medical History - Social History Family history: Reviewed & Not Pertinent - Past Medical History Cardiac Medical History: Reports: Hx Heart Murmur Pulmonary Medical History: Reports: Hx Pneumonia Renal/ Medical History: Reports: Hx Kidney Stones. Denies: Hx Peritoneal Dialysis Psychiatric Medical History: Reports: Hx Anxiety, Hx Depression Past Surgical History: Reports: Hx Oral Surgery - dental surgery - Immunizations Hx Diphtheria, Pertussis, Tetanus Vaccination: Yes Physical Exam - Vital signs Vitals: Temp Pulse Resp BP Pulse Ox 97.9 F 77 18 128/88 H 99 02/03/19 08:58 02/03/19 08:58 02/03/19 08:58 02/03/19 08:58 02/03/19 08:58 Course - Vital Signs Vital signs: Temp Pulse Resp BP Pulse Ox 97.9 F 77 18 128/88 H 99 02/03/19 08:58 02/03/19 08:58 02/03/19 08:58 02/03/19 08:58 02/03/19 08:58
[2019-02-03 09:45] LABS: APPEARANCE,URINE CLEAR; BILIRUBIN,URINE NEGATIVE (NEGATIVE); COLOR,URINE YELLOW; GLUCOSE, URINE NEGATIVE (NEGATIVE); KETONES,URINE TRACE mg/dL (NEGATIVE); LEUKOCYTE ESTERASE,URINE NEGATIVE (NEGATIVE); NITRITE,URINE NEGATIVE (NEGATIVE); PROTEIN,URINE NEGATIVE (NEGATIVE); URINE SPECIFIC GRAVITY 1.025
[2019-02-03 10:08] LABS: ALANINE AMINOTRANSFERASE 27 U/L (21-72); ALKALINE PHOSPHATASE 46 U/L (38-126); ANION GAP 7 (5-19); ASPARTATE AMINO TRANSFERASE 20 U/L (17-59); BILIRUBIN,DIRECT 0.2 mg/dL (0.0-0.4); BILIRUBIN,TOTAL 0.3 mg/dL (0.2-1.3); BLOOD UREA NITROGEN 17 mg/dL (7-20); CALCIUM 9.4 mg/dL (8.4-10.2); CARBON DIOXIDE 27 mmol/L (22-30); CHLORIDE 109 mmol/L (98-107); GLUCOSE 94 mg/dL (75-110); LIPASE 148.7 U/L (23-300); POTASSIUM 4.1 mmol/L (3.6-5.0); SODIUM 143.2 mmol/L (137-145); TOTAL PROTEIN 6.6 g/dL (6.3-8.2)
[2019-02-03] MEDS ORDERED: NORMAL SALINE 1000 ML 1,000 ML IV ONE (10:15)
--- NOTE | 2019-02-03 10:17 | ER Document Report ---
ED GI/ - General Chief Complaint: Nausea/Vomiting Stated Complaint: ABDOMINAL PAIN,VOMITING Time Seen by Provider: 02/03/19 09:18 Mode of Arrival: Ambulatory Information source: Patient TRAVEL OUTSIDE OF THE [place] IN LAST 30 DAYS: No - HPI Patient complains to provider of: Vomiting Notes: 02/03/19 10:15 Patient here with complaints of nausea, vomiting. Started about 10 PM last night. Has had approximately 6 episodes of vomiting. No blood in his vomit. No diarrhea. Complains of some generalized abdominal cramping and pain. No focal areas of pain or tenderness. No fever. No recent travel outside he denies days. No recent antibiotic use. The patient states his mother had similar symptoms 2 days ago. He denies any chest pain or shortness of breath. No rash. No numbness, tingling, weakness. He was given Zofran and then triage and states that his nausea has improved. He denies any dysuria or hematuria. Symptoms improved with Zofran, nothing makes them specifically worse. No chronic abdominal problems. No abdominal surgeries. No other complaints. - Related Data Allergies/Adverse Reactions: ketorolac tromethamine [From Toradol] Allergy (Intermediate, Verified 02/03/19 08:55) Hives, Itchy Past Medical History - General Information source: Patient - Social History Smoking Status: Current Every Day Smoker Chew tobacco use (# tins/day): No Frequency of alcohol use: Rare Drug Abuse: None Family History: Reviewed & Not Pertinent, Hypertension Patient has suicidal ideation: No Patient has homicidal ideation: No - Past Medical History Cardiac Medical History: Reports: Hx Heart Murmur Pulmonary Medical History: Reports: Hx Pneumonia Renal/ Medical History: Reports: Hx Kidney Stones. Denies: Hx Peritoneal Dialysis Psychiatric Medical History: Reports: Hx Anxiety, Hx Depression Past Surgical History: Reports: Hx Oral Surgery - dental surgery - Immunizations Hx Diphtheria, Pertussis, Tetanus Vaccination: Yes Review of Systems - Review of Systems -: Yes All other systems reviewed and negative Physical Exam - Vital signs Vitals: Temp Pulse Resp BP Pulse Ox 97.9 F 77 18 128/88 H 99 02/03/19 08:58 02/03/19 08:58 02/03/19 08:58 02/03/19 08:58 02/03/19 08:58 - Notes Notes: GENERAL: alert, cooperative, nontoxic, no distress. HEAD: normocephalic, atraumatic EYES: conjunctiva pink without discharge, no external redness or swelling. EARS: no external swelling, no external redness NOSE: atraumatic, no external swelling MOUTH/THROAT: mucous membranes moist and pink, posterior pharynx without erythema, swelling, exudate. No trismus or drooling. NECK: soft, supple, full range of motion, no meningismus. CHEST: no distress, lungs clear and equal throughout. No wheezing, rales, rhonchi. CARDIAC: regular rate and rhythm, no murmur, normal capillary refill, normal pulses. No peripheral edema noted. ABDOMEN: Soft, nontender. No rebound tenderness or guarding. No mass. BACK: full range of motion, no CVA tenderness. EXTREMITIES: full range of motion of all extremities. No redness, no swelling. NEURO: alert and oriented x 3, no focal deficits, full range of motion of all extremities. PYSCH: appropriate mood, affect. Patient is cooperative. SKIN: pink, warm, dry, no rash. Course - Re-evaluation Re-evalutation: 02/03/19 11:19 Patient is nontoxic-appearing with stable vitals. He is here with complaints of nausea vomiting that started last night. Planes of some mild generalized abdominal pain. No diarrhea. No fever. His mother had similar symptoms 2 days ago. On exam he has no focal abdominal tenderness. Vital signs are stable. Labs are all unremarkable with a normal white count, normal LFTs and lipase. No signs of UTI, some ketones and signs of dehydration on his urine. Patient was given Zofran and IV fluids. He states that he is feeling better at this time. Reexam shows no focal abdominal tenderness at this time. Patient most likely with gastroenteritis since he was exposed to someone else with similar symptoms 2 days ago. At this point do not believe that imaging would be indicated. Patient will be discharged home with prescription for Zofran and Bentyl. Instructions drink plenty fluids. Follow-up with his doctor if not better in the next 2 to 3 days, return the emergency department if he develops any focal areas of pain specifically in the right lower quadrant, persistent vomiting, high fever, blood in his vomit or stool, or for any further concerns. The patient's emergency department workup and current diagnosis were explained to the patient and or family. Follow-up instructions were provided. Medications if prescribed were discussed. Instructions for when to return to the emergency department including specific worrisome symptoms were discussed with the patient and/or family. - Vital Signs Vital signs: Temp Pulse Resp BP Pulse Ox 97.9 F 77 18 128/88 H 99 02/03/19 08:58 02/03/19 08:58 02/03/19 08:58 02/03/19 08:58 02/03/19 08:58 - Laboratory Result Diagrams: 02/03/19 09:39 02/03/19 09:39 Laboratory results interpreted by me: 02/03/19 02/03/19 02/03/19 09:30 09:39 09:39 RBC 6.17 H MCV 76 L MCH 25.2 L RDW 14.7 H Basophils % 2.4 H Chloride 109 H Urine Ketones TRACE H Urine Urobilinogen 2.0 H Discharge - Discharge Clinical Impression: Nausea & vomiting Qualifiers: Vomiting type: unspecified Vomiting Intractability: non-intractable Qualified Code(s): R11.2 - Nausea with vomiting, unspecified Condition: Stable Disposition: HOME, SELF-CARE Instructions: Vomiting ([facility]), Intravenous (IV) Fluids ([facility]), Antinausea Medication ([facility]) Additional Instructions: Take medication as prescribed. Drink plenty fluids. Slowly progress her diet as you are feeling better. 2 to 3 days, sooner for worsening pain, specifically pain in the right lower quadrant, persistent vomiting, high fever, blood in your vomit or stool, or for any further concerns. Prescriptions: Dicyclomine HCl [Bentyl 20 mg Tablet] 20 mg PO QID #20 tablet Ondansetron HCl [Zofran 4 mg Tablet] 1 tab PO Q4H PRN #10 tablet PRN Reason: Forms: Elevated Blood Pressure, Smoking Cessation Education Referrals: [facility] [Provider Group] - Follow up as needed
[2019-02-03 10:25] LABS: ABSOLUTE BASOPHILS # (AUTO) 0.1 10^3/uL (0.0-0.2); ABSOLUTE EOSINOPHILS # (AUTO) 0.2 10^3/uL (0.0-0.6); ABSOLUTE LYMPHOCYTES (AUTO) 2.3 10^3/uL (0.5-4.7); ABSOLUTE MONOCYTES (AUTO) 0.5 10^3/uL (0.1-1.4); ABSOLUTE NEUT (AUTO) 2.8 10^3/uL (1.7-8.2); BASOPHILS % (AUTO) 2.4 % (0-2); EOSINOPHILS % (AUTO) 3.5 % (0-6); HEMOGLOBIN 15.6 g/dL (13.5-17.0); LYMPHOCYTES % (AUTO) 38.5 % (13-45); MEAN CORPUSCULAR HEMOGLOBIN 25.2 pg (27.0-33.4); MEAN CORPUSCULAR HGB CONC 33.2 g/dL (32.0-36.0); MEAN CORPUSCULAR VOLUME 76 fl (80-97); MONOCYTES % (AUTO) 7.8 % (3-13); PLATELET COUNT 367 10^3/uL (150-450); RED BLOOD COUNT 6.17 10^6/uL (4.35-5.55); RED CELL DISTRIBUTION WIDTH 14.7 % (11.5-14.0); SEGMENTED NEUTROPHILS % (AUTO) 47.8 % (42-78); TOTAL CELLS COUNTED % (AUTO) 100 %; WHITE BLOOD COUNT 5.9 10^3/uL (4.0-10.5)
[2019-02-03 11:36] VITALS: BP 124/77
== END 2019-02-03 11:36 | disposition home or self-care (01) ==
LOC: ER 08:51
DX: R11.2 Nausea with vomiting, unspecified (principal); R10.9 Unspecified abdominal pain; R10.84 Generalized abdominal pain; F17.200 Nicotine dependence, unspecified, uncomplicated
CPT/HCPCS: 99284; 96360; 36415; 83690; 85025; 80053; 81001; S0119; J7030

== ENCOUNTER 2019-02-14 13:39 | Emergency (ER) | payer SELFPAY ==
[2019-02-14] MEDS ORDERED: ACETAMINOPHEN 325 MG TABLET PO ONE (16:00)
--- NOTE | 2019-02-14 16:04 | ER Document Report ---
HPI - HPI Patient complains to provider of: Left thumb laceration Time Seen by Provider: 02/14/19 15:59 Onset: This afternoon Onset/Duration: Sudden Quality of pain: Achy Pain Level: 4 Context: Patient was cutting scallions and slipped cutting his left thumb. Patient's tetanus immunization is currently up-to-date. Associated Symptoms: Other - Left thumb laceration Exacerbated by: Movement Relieved by: Denies Similar symptoms previously: No Recently seen / treated by doctor: No - ROS ROS below otherwise negative: Yes Systems Reviewed and Negative: Yes All other systems reviewed and negative - NEURO Neurology: DENIES: Weakness - REPRODUCTIVE Reproductive: DENIES: : - MUSCULOSKELETAL Musculoskeletal: REPORTS: Extremity pain - DERM Skin Problems: Laceration Past Medical History - General Information source: Patient - Social History Smoking Status: Current Every Day Smoker Smoking Education Provided: Yes Frequency of alcohol use: Occasional Drug Abuse: None 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 Denies: Hx Peritoneal Dialysis Psychiatric Medical History: Reports: Hx Anxiety, Hx Depression Past Surgical History: Reports: Hx Oral Surgery - dental surgery - Immunizations Hx Diphtheria, Pertussis, Tetanus Vaccination: Yes Vertical Provider Document - CONSTITUTIONAL Agree With Documented VS: Yes Exam Limitations: No Limitations General Appearance: WD/WN, No Apparent Distress - INFECTION CONTROL TRAVEL OUTSIDE OF THE [place] IN LAST 30 DAYS: No - HEENT HEENT: Atraumatic, Normocephalic - NECK Neck: Normal Inspection - RESPIRATORY Respiratory: No Respiratory Distress - CARDIOVASCULAR Pulses: Normal: Radial - MUSCULOSKELETAL/EXTREMETIES Musculoskeletal/Extremeties: MAEW - NEURO Level of Consciousness: Awake, Alert, Appropriate Motor/Sensory: No Motor Deficit - DERM Integumentary: Warm, Dry, Laceration - Superficial laceration to the dorsal aspect of left thumb that does go through the nail and into the ulnar aspect of the left thumb Course - Re-evaluation Re-evalutation: 02/14/19 16:02 Discussed with patient wound closure options. Patient prefers Steri-Strips and Dermabond at this time. - Vital Signs Vital signs: Temp Pulse Resp BP Pulse Ox 97.8 F 75 14 150/96 H 100 05/22/19 13:58 02/14/19 13:58 02/14/19 13:58 02/14/19 13:58 02/14/19 13:58 Procedures - Laceration/Wound Repair Left Thumb Wound length (cm): 2 Wound's Depth, Shape: Superficial, Linear Laceration pre-procedure: Shur-Clens applied Wound explored: Clean Wound Repaired With: Steri-strips, Dermabond Layer Closure?: No Post-procedure wound care: Sterile dressing applied Post-procedure NV exam normal: Yes Complications: No Discharge - Discharge Clinical Impression: Finger laceration Qualifiers: Encounter type: initial encounter Finger: thumb Damage to nail status: with damage Foreign body presence: without foreign body Laterality: left Qualified Code(s): S61.112A - Laceration without foreign body of left thumb with damage to nail, initial encounter Condition: Stable Disposition: HOME, SELF-CARE Instructions: Laceration Care ([facility]), Prophylactic Antibiotic ([facility]), Skin Adhesive Closure ([facility]), Care of Steri-Strip Closure ([facility]) Additional Instructions: Return immediately for any new or worsening symptoms Followup with your primary care provider, call tomorrow to make a followup appointment Prescriptions: Cephalexin Monohydrate [Keflex 500 mg Capsule] 500 mg PO Q6H 3 Days capsule Forms: Smoking Cessation Education, Return to Work Referrals: [facility] [Provider Group] - Follow up as needed
[2019-02-14 16:40] VITALS: BP 147/85
== END 2019-02-14 16:42 | disposition home or self-care (01) ==
LOC: ER 13:39
PROC: 0HQGXZZ Repair Left Hand Skin, External Approach (ICD-10-PCS; principal; 2019-02-14)
DX: S61.012A Laceration without foreign body of left thumb without damage to nail, initial encounter (principal); W26.0XXA Contact with knife, initial encounter; Y93.G1 Activity, food preparation and clean up; F17.210 Nicotine dependence, cigarettes, uncomplicated
CPT/HCPCS: 99282

== ENCOUNTER 2019-05-29 11:00 | Emergency (ER) | payer SELFPAY ==
[2019-05-29] MEDS ORDERED: ACETAMINOPHEN 325 MG TABLET PO ONE (11:17)
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
--- NOTE | 2019-05-29 12:09 | RADIOLOGY REPORT (SQ) ---
EXAM DESCRIPTION: HAND RIGHT 3 VIEWS COMPLETED DATE/TIME: 05/29/2019 11:46 am REASON FOR STUDY: punched wall COMPARISON: None. EXAM PARAMETERS: NUMBER OF VIEWS: Three views. TECHNIQUE: AP, lateral and oblique radiographic images acquired of the right hand. LIMITATIONS: None. FINDINGS: MINERALIZATION: Normal. BONES: No acute fracture or dislocation. No worrisome bone lesions. JOINTS: No effusions. SOFT TISSUES: There is soft tissue swelling dorsally. OTHER: No other significant finding. IMPRESSION: Mild soft tissue swelling over the metacarpal phalangeal joints. No underlying fracture . TECHNICAL DOCUMENTATION: JOB ID: [id number] [employer]- All Rights Reserved Reading location - IP/workstation name: [email or web address]
[2019-05-29] MEDS ORDERED: CEPHALEXIN 500 MG CAPSULE PO ONE (12:48)
[2019-05-29 12:59] VITALS: BP 140/90
== END 2019-05-29 13:01 | disposition home or self-care (01) ==
LOC: ER 11:00
DX: S60.221A Contusion of right hand, initial encounter (principal); S69.91XA Unspecified injury of right wrist, hand and finger(s), initial encounter; W22.09XA Striking against other stationary object, initial encounter; F17.200 Nicotine dependence, unspecified, uncomplicated; Z87.442 Personal history of urinary calculi
CPT/HCPCS: 99283

== ENCOUNTER 2019-09-15 10:40 | Emergency (ER) | payer SELFPAY ==
[2019-09-15 10:45] VITALS: BP 130/92
--- NOTE | 2019-09-15 11:53 | RADIOLOGY REPORT (SQ) ---
EXAM DESCRIPTION: CHEST 2 VIEWS COMPLETED DATE/TIME: 09/15/2019 11:38 am REASON FOR STUDY: cough, hx of pneumonia COMPARISON: 07/22/2016 EXAM PARAMETERS: NUMBER OF VIEWS: two views TECHNIQUE: Digital Frontal and Lateral radiographic views of the chest acquired. RADIATION DOSE: NA LIMITATIONS: none FINDINGS: LUNGS AND PLEURA: No opacities, masses or pneumothorax. No pleural effusion. MEDIASTINUM AND HILAR STRUCTURES: No masses or contour abnormalities. HEART AND VASCULAR STRUCTURES: Heart normal size. No evidence for failure. BONES: No acute findings. HARDWARE: None in the chest. OTHER: No other significant finding. IMPRESSION: NO ACUTE RADIOGRAPHIC FINDING IN THE CHEST. TECHNICAL DOCUMENTATION: JOB ID: [id number] [employer]- All Rights Reserved Reading location - IP/workstation name: [email or web address]
[2019-09-15] MEDS ORDERED: ALBUTEROL SULFATE HFA (90 MCG/PUFF) 8 GM MDI (1 MDI/ER DISP) IH ONE (12:29)
--- NOTE | 2019-09-15 12:30 | ER Document Report ---
HPI - HPI Time Seen by Provider: 09/15/19 11:13 Pain Level: Denies Notes: Otherwise healthy 38-year-old male presenting with cough, congestion and nasal drainage. Patient reports the last time he had symptoms like this he had a pneumonia. He denies any known fever but does report chills at home. Has been taking azzo-cgm-mbrhmig medications without relief. Requesting x-ray. - CONSTITUTIONAL Constitutional: REPORTS: Chills. DENIES: Fever - EENT EENT: REPORTS: Sore Throat. DENIES: Ear Pain, Eye problems - NEURO Neurology: DENIES: Headache, Weakness, Vision blurred, Dizzinesss / Vertigo - CARDIOVASCULAR Cardiovascular: DENIES: Chest pain - RESPIRATORY Respiratory: REPORTS: Trouble Breathing, Coughing - GASTROINTESTINAL Gastrointestinal: DENIES: Abdominal Pain, Black / Bloody Stools - URINARY Urinary: DENIES: Dysuria, Urgency, Frequency - REPRODUCTIVE Reproductive: DENIES: : - MUSCULOSKELETAL Musculoskeletal: DENIES: Extremity pain Past Medical History - General Information source: Patient - Social History Smoking Status: Current Every Day Smoker Chew tobacco use (# tins/day): No Frequency of alcohol use: Rare Drug Abuse: None Family History: Reviewed & Not Pertinent, Hypertension Patient has suicidal ideation: No Patient has homicidal ideation: No - Past Medical History Cardiac Medical History: Reports: Hx Heart Murmur Pulmonary Medical History: Reports: Hx Pneumonia Renal/ Medical History: Reports: Hx Kidney Stones. Denies: Hx Peritoneal Dialysis Psychiatric Medical History: Reports: Hx Anxiety, Hx Depression Past Surgical History: Reports: Hx Oral Surgery - dental surgery - Immunizations Hx Diphtheria, Pertussis, Tetanus Vaccination: Yes Vertical Provider Document - CONSTITUTIONAL Notes: PHYSICAL EXAMINATION: GENERAL: Well-appearing, well-nourished and in no acute distress. HEAD: Atraumatic, normocephalic. EYES: Pupils equal round and reactive to light, extraocular movements intact, sclera anicteric, conjunctiva are normal. ENT: Nares patent, oropharynx clear without exudates. Moist mucous membranes. NECK: Normal range of motion, supple without lymphadenopathy LUNGS: Breath sounds clear to auscultation bilaterally and equal. No wheezes rales or rhonchi. HEART: Regular rate and rhythm without murmurs ABDOMEN: Soft, nontender, nondistended abdomen. No guarding, no rebound. No masses appreciated. Musculoskeletal: Normal range of motion, no pitting or edema. No cyanosis. NEUROLOGICAL: Cranial nerves grossly intact. Normal speech, normal gait. Normal sensory, motor exams PSYCH: Normal mood, normal affect. SKIN: Warm, Dry, normal turgor, no rashes or lesions noted. - INFECTION CONTROL TRAVEL OUTSIDE OF THE [place] IN LAST 30 DAYS: No Course - Re-evaluation Re-evalutation: Chest x-ray negative for any acute findings. Likely viral upper respiratory illness. Patient will be started on appropriate medication. Patient verbalizes understanding and agreement with this plan. He also understands ED return precautions. - Vital Signs Vital signs: Temp Pulse Resp BP Pulse Ox 97.8 F 80 18 130/92 H 98 09/15/19 11:05 09/15/19 10:43 09/15/19 11:05 09/15/19 10:43 09/15/19 11:05 Discharge - Discharge Clinical Impression: Upper respiratory infection Qualifiers: URI type: unspecified viral URI Qualified Code(s): J06.9 - Acute upper respiratory infection, unspecified Condition: Stable Disposition: HOME, SELF-CARE Additional Instructions: Your chest x-ray was negative. Your symptoms are most likely due to a viral infection it should resolve over the next 7-14 days. Take the steroids as directed. You should take imva-mfz-ekzwojz guanfacine per bottle instructions to help thin the mucus. For nasal congestion: I would recommend that you get afln-ncw-kdisjtn oxymetazoline also known is afrin. Use only per bottle instructions and be sure to never use this for more than 3 days if you can develop severe rebound congestion. You may also use tylenol or ibuprofen as needed for aches and thorat discomfort. Please be sure to drink plenty of fluids and get rest. Return to the emergency department he began having difficulty breathing, chest pain, persistent vomiting, or any other symptoms that are concerning to you. Prescriptions: Prednisone [Deltasone 20 mg Tablet] 3 tab PO DAILY 5 Days #15 tablet Forms: Return to Work
== END 2019-09-15 13:15 | disposition home or self-care (01) ==
LOC: ER 10:40
DX: J06.9 Acute upper respiratory infection, unspecified (principal); F17.200 Nicotine dependence, unspecified, uncomplicated; Z87.442 Personal history of urinary calculi
CPT/HCPCS: 99283; 71046; J3490

== ENCOUNTER 2019-10-14 18:17 | Emergency (ER) | payer SELFPAY ==
[2019-10-14] MEDS ORDERED: OXYCODONE HCL IR 5 MG TABLET PO ONE (18:45)
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
[2019-10-14] MEDS ORDERED: OXYCODONE-ACETAMINOPHEN 5-325 MG TABLET PO ONE (21:23)
[2019-10-14 22:31] VITALS: BP 133/87
== END 2019-10-14 22:19 | disposition home or self-care (01) ==
LOC: ER 18:17
DX: S52.022A Displaced fracture of olecranon process without intraarticular extension of left ulna, initial encounter for closed fracture (principal); V18.2XXA Unspecified pedal cyclist injured in noncollision transport accident in nontraffic accident, initial encounter; Y93.55 Activity, bike riding; F17.210 Nicotine dependence, cigarettes, uncomplicated; R00.0 Tachycardia, unspecified; Z88.8 Allergy status to other drugs, medicaments and biological substances
CPT/HCPCS: 99285

== ENCOUNTER 2019-10-24 09:46 | Day surgery (SDC) | payer SELFPAY ==
[2019-10-19 11:04] LABS: ABSOLUTE BASOPHILS # (AUTO) 0.1 10^3/uL (0.0-0.2); ABSOLUTE EOSINOPHILS # (AUTO) 0.2 10^3/uL (0.0-0.6); ABSOLUTE LYMPHOCYTES (AUTO) 2.1 10^3/uL (0.5-4.7); ABSOLUTE MONOCYTES (AUTO) 0.5 10^3/uL (0.1-1.4); ABSOLUTE NEUT (AUTO) 4.1 10^3/uL (1.7-8.2); BASOPHILS % (AUTO) 1.1 % (0-2); EOSINOPHILS % (AUTO) 2.6 % (0-6); HEMATOCRIT 38.5 % (37.9-51.0); HEMOGLOBIN 13.3 g/dL (13.5-17.0); LYMPHOCYTES % (AUTO) 30.3 % (13-45); MEAN CORPUSCULAR HEMOGLOBIN 26.7 pg (27.0-33.4); MEAN CORPUSCULAR HGB CONC 34.6 g/dL (32.0-36.0); MEAN CORPUSCULAR VOLUME 77 fl (80-97); MONOCYTES % (AUTO) 7.7 % (3-13); PLATELET COUNT 284 10^3/uL (150-450); RED BLOOD COUNT 4.99 10^6/uL (4.35-5.55); RED CELL DISTRIBUTION WIDTH 15.3 % (11.5-14.0); SEGMENTED NEUTROPHILS % (AUTO) 58.3 % (42-78); TOTAL CELLS COUNTED % (AUTO) 100 %
[2019-10-19 11:23] LABS: ANION GAP 9 (5-19); BLOOD UREA NITROGEN 13 mg/dL (7-20); CALCIUM 9.5 mg/dL (8.4-10.2); CARBON DIOXIDE 31 mmol/L (22-30); CHLORIDE 101 mmol/L (98-107); GLUCOSE 93 mg/dL (75-110); POTASSIUM 4.4 mmol/L (3.6-5.0)
--- NOTE | 2019-10-19 11:36 | RADIOLOGY REPORT (SQ) ---
EXAM DESCRIPTION: CHEST PA/LATERAL COMPLETED DATE/TIME: 10/19/2019 10:33 am REASON FOR STUDY: PRE-OP COMPARISON: None. EXAM PARAMETERS: NUMBER OF VIEWS: two views TECHNIQUE: Digital Frontal and Lateral radiographic views of the chest acquired. RADIATION DOSE: NA LIMITATIONS: none FINDINGS: LUNGS AND PLEURA: No opacities, masses or pneumothorax. No pleural effusion. MEDIASTINUM AND HILAR STRUCTURES: No masses or contour abnormalities. HEART AND VASCULAR STRUCTURES: Heart normal size. No evidence for failure. BONES: No acute findings. HARDWARE: None in the chest. OTHER: No other significant finding. IMPRESSION: NO SIGNIFICANT RADIOGRAPHIC FINDING IN THE CHEST. TECHNICAL DOCUMENTATION: JOB ID: [id number] [employer]- All Rights Reserved Reading location - IP/workstation name: [email or web address]
[~2019-10-24 09:46] MED LIST: ACETAMINOPHEN 325 MG TABLET PO PRN; CEFAZOLIN SODIUM 2 GM in DEXTROSE 5%-WATER 100 ML IV PRN; LACTATED RINGERS 1000 ML IV PRN; LIDOCAINE 0.5% INJ-PF (5 MG/ML) 50 ML SDV SUBCUT PRN; OXYCODONE HCL SR 10 MG TABLET PO PRN
[2019-10-24] MEDS ORDERED: OXYCODONE HCL SR 10 MG TABLET PO ONE (09:51)
[2019-10-24] MEDS ORDERED: ACETAMINOPHEN 325 MG TABLET ONE (09:51)
[2019-10-24] MEDS ORDERED: ONDANSETRON HCL INJ/PF 4 MG/2 ML SDV ONE (10:40)
[2019-10-24] MEDS ORDERED: DEXAMETHASONE SOD PHOSPHATE INJ 4 MG/1 ML VIAL ONE (10:40)
[2019-10-24] MEDS ORDERED: SUCCINYLCHOLINE CHLORIDE INJ 200 MG/10 ML VIAL ONE (10:40)
[2019-10-24] MEDS ORDERED: MIDAZOLAM 2 MG/2 ML INJ ONE ×2 (10:42→11:10)
[2019-10-24] MEDS ORDERED: FENTANYL CITRATE INJ/PF 100 MCG/2 ML AMPUL ONE ×2 (11:09→14:51)
[2019-10-24] MEDS ORDERED: HYDROMORPHONE HCL INJ/PF 2 MG/ML AMPULE ONE (11:10)
[2019-10-24] MEDS ORDERED: PROPOFOL INJ 200 MG/20 ML VIAL IV ONE (11:10)
[2019-10-24] MEDS ORDERED: BUPIVACAINE HCL 0.25 % INJ/PF (2.5 MG/1 ML) 30 ML VIAL ONE (13:08)
[2019-10-24] MEDS ORDERED: LIDOCAINE 1% INJ-PF (10 MG/ML) 30 ML SDV ONE (13:08)
[2019-10-24] MEDS ORDERED: MEPERIDINE HCL/PF INJ 25 MG/1 ML DISP.SYRIN IV PRN (14:46)
[2019-10-24] MEDS ORDERED: FENTANYL CITRATE INJ/PF 100 MCG/2 ML AMPUL IV PRN ×2 (14:46)
[2019-10-24] MEDS ORDERED: DIPHENHYDRAMINE HCL 50 MG/ML VIAL IV PRN (14:46)
[2019-10-24] MEDS ORDERED: OXYCODONE-ACETAMINOPHEN 5-325 MG TABLET PO PRN ×2 (14:46)
[2019-10-24] MEDS ORDERED: MORPHINE SULFATE 10 MG/ML INJ IV PRN (14:46)
[2019-10-24] MEDS ORDERED: ONDANSETRON HCL INJ/PF 4 MG/2 ML SDV IV PRN (14:46)
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
[2019-10-24] MEDS: FENTANYL CITRATE INJ/PF 100 MCG/2 ML AMPUL IV PRN ×2 (14:53→15:00)
--- NOTE | 2019-10-24 15:08 | Discharge Summary ---
Discharge Summary (SDC) - Discharge Final Diagnosis: Left olecranon fracture Date of Surgery: 10/24/19 Discharge Date: 10/24/19 Condition: Stable Treatment or Instructions: Full list of instructions were provided to the patient from the clinic. Patient is to keep the splint on in place until seen in the office in approximately 10 days to 2 weeks. He is to avoid removal of the splint until seen. If it is to get wet or overly dirty he is to come into the office for a exchange. Patient is nonweightbearing on the left upper extremity. Discharge Diet: As Tolerated Respiratory Treatments at Home: Deep Breathing/Coughing Discharge Activity: Activity As Tolerated, No Driving, No Lifting/Push/Pulling, No tub bath Report the Following to Your Physician Immediately: Shortness of Breath, Fever over 101 Degrees
[2019-10-24] MEDS ORDERED: OXYCODONE HCL IR 5 MG TABLET ONE (15:41)
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
[2019-10-24 18:18] VITALS: BP 157/90
== END 2019-10-24 16:00 | disposition home or self-care (01) ==
LOC: OROUT 09:46
PROVIDERS: ATTEND Orthopaedic Surgery
DX: S52.032D Displaced fracture of olecranon process with intraarticular extension of left ulna, subsequent encounter for closed fracture with routine healing (principal); S42.402A Unspecified fracture of lower end of left humerus, initial encounter for closed fracture; V19.9XXA Pedal cyclist (driver) (passenger) injured in unspecified traffic accident, initial encounter; M25.522 Pain in left elbow
CPT/HCPCS: 36415; 85025; 80048; 71046; 73070; 01740; 24685; C1713 ×2; J2250; J0690; J1100; J3010; J3490; J1170; J0330; J2405; J7060; J2704